=== PATIENT | female | born 1965 ===

== ENCOUNTER 2017-12-03 14:15 | Inpatient (IN) | payer OTHER | END 2017-12-13 09:24 | disposition home or self-care (01) | DRG 460 | LOC: SURG-SUITE 12-12 05:39 → O/R 12-12 05:39 → SURH 12-12 07:00 → PED 12-12 11:12 → SURG-SUITE 12-12 12:06 → SURH 12-12 14:15 → SURG-SUITE 12-13 09:24 | PROVIDERS: Orthopaedic Surgery | PROC: 0ST40ZZ Resection of Lumbosacral Disc, Open Approach (ICD-10-PCS; 2017-12-12) | PROC: 00NY0ZZ Release Lumbar Spinal Cord, Open Approach (ICD-10-PCS; principal; 2017-12-12 07:00) | PROC: 0SG30AJ Fusion of Lumbosacral Joint with Interbody Fusion Device, Posterior Approach, Anterior Column, Open Approach (ICD-10-PCS; 2017-12-12 07:00) | DX: M48.061 Spinal stenosis, lumbar region without neurogenic claudication (principal); M51.36 Other intervertebral disc degeneration, lumbar region; M47.817 Spondylosis without myelopathy or radiculopathy, lumbosacral region; M43.17 Spondylolisthesis, lumbosacral region ==